=== PATIENT | male | born 1980 | race Caucasian/White ===

== ENCOUNTER 2016-11-09 08:03 | Emergency (ER) | payer OTHER ==
[~2016-11-09] VITALS: Ht 187.9 cm; Wt 84.8 kg
[2016-11-09] MEDS ORDERED: LITHIUM CARBON300 MG PO (08:13)
[2016-11-09] MEDS ORDERED: QUETIAPINE FUM100 M3 PO (08:13)
[2016-11-09] MEDS ORDERED: Motrin,Rufen800 MG PO (10:17)
== END 2016-11-09 10:28 | disposition home or self-care (01) ==
LOC: ED 08:03
DX: B34.9 Viral infection, unspecified (principal)

== ENCOUNTER → 2016-12-16 | Outpatient (CLI) | payer OTHER ==
[~2016-12-16] MED LIST: LITHIUM CARBON300 MG PO; Motrin,Rufen800 MG PO; QUETIAPINE FUM100 M3 PO
[2016-12-16 11:43] LABS: BUN 5 mg/dl (7-24); EST GLOM FILT AFRICAN AMERICAN > 60 ml/min
== END | disposition home or self-care (01) ==
LOC: LAB 10:46
DX: F31.9 Bipolar disorder, unspecified (principal)

== ENCOUNTER → 2017-10-07 | Outpatient (CLI) | payer OTHER ==
[2017-10-07 10:15] LABS: BUN 6 mg/dl (7-24); CREATININE 0.86 mg/dL (0.70-1.30)
== END | disposition home or self-care (01) ==
LOC: LAB 09:28
DX: F33.1 Major depressive disorder, recurrent, moderate (principal)

== ENCOUNTER → 2018-11-12 | Outpatient (CLI) | payer OTHER ==
[2018-11-12 13:43] LABS: BUN 4 mg/dl (7-24); CREATININE 0.84 mg/dL (0.70-1.30)
== END | disposition home or self-care (01) ==
LOC: LAB 12:59
DX: F31.9 Bipolar disorder, unspecified (principal)

== ENCOUNTER → 2021-01-22 | Outpatient (CLI) | payer BC ==
[2021-01-22 11:14] LABS: BUN 9 mg/dl (7-24); CREATININE 0.82 mg/dL (0.70-1.30)
== END | disposition home or self-care (01) ==
LOC: LAB 10:20
PROVIDERS: ATTEND Nurse Practitioner
DX: F31.9 Bipolar disorder, unspecified (principal)

== ENCOUNTER → 2021-12-11 | Outpatient (CLI) | payer OTHER | END | disposition home or self-care (01) | LOC: LAB 09:10 | PROVIDERS: ATTEND Psychiatry & Neurology Psychiatry | DX: F31.9 Bipolar disorder, unspecified (principal) ==

== ENCOUNTER → 2022-06-20 | Outpatient (CLI) | payer OTHER ==
[2022-06-20 13:28] LABS: BUN 6 mg/dl (7-24); CREATININE 0.87 mg/dL (0.70-1.30)
== END | disposition home or self-care (01) ==
LOC: LAB 12:30
PROVIDERS: ATTEND Nurse Practitioner
DX: F31.9 Bipolar disorder, unspecified (principal)

== ENCOUNTER → 2023-11-17 | Outpatient (CLI) | payer OTHER ==
[2023-11-17 10:50] LABS: BUN 11 mg/dl (9-23); T3 UPTAKE 26.6 % (22.4-36.7); THYROXINE (T4) TOTAL 7.7 ug/dl (4.5-10.9)
== END | disposition home or self-care (01) ==
LOC: LAB 09:55
PROVIDERS: ATTEND Psychiatry & Neurology Psychiatry
DX: F31.9 Bipolar disorder, unspecified (principal)

== ENCOUNTER → 2024-11-02 | Outpatient (CLI) | payer BC ==
[2024-11-02 10:23] LABS: BUN 10 mg/dl (9-23); T3 UPTAKE 28.9 % (22.4-36.7); THYROXINE (T4) TOTAL 7.8 ug/dl (4.5-10.9)
== END | disposition home or self-care (01) ==
LOC: LAB 09:21
PROVIDERS: ATTEND Psychiatry & Neurology Psychiatry
DX: F31.12 Bipolar disorder, current episode manic without psychotic features, moderate (principal)